=== PATIENT | female | born 1975 | race Caucasian/White ===

== ENCOUNTER 2017-05-19 07:33 | Emergency (ER) | payer MEDICARE, MEDICAID ==
[~2017-05-19] VITALS: Ht 177.8 cm; Wt 68.0 kg
[~2017-05-19 07:33] MED LIST: CEPH500C5 PO; HYDR1TAB PO; MEDR10TA PO
[2017-05-19] MEDS ORDERED: LORazepam 2 mg/ml vial IM ONE (09:25)
[2017-05-19] MEDS ORDERED: bacitracin 15gm ointment TP ONE (09:25)
[2017-05-19] MEDS ORDERED: LIDOcaine 1.5% w/epinephrine 1:200,000 5ml ampul IJ ONE (09:25)
[2017-05-19] MEDS ORDERED: ketorolac trometh inj. 60 MG/2 ML VIAL IM ONE (09:25)
[2017-05-19] MEDS ORDERED: TETanus/Pertussis (Acell)/Diphther VAC/PF (Tdap-Adult) 0.5ml syringe IM ONE (09:25)
[2017-05-19] MEDS ORDERED: HYDROcodone/acetaminophen 5mg/325mg tablet PO ONE (09:25)
[2017-05-19] MEDS ORDERED: CLIN-79 PO (10:30)
[2017-05-19 11:07] VITALS: BP 99/65
== END 2017-05-19 11:13 | disposition home or self-care (01) ==
LOC: ER 07:34
DX: L02.01 Cutaneous abscess of face (principal); F15.10 Other stimulant abuse, uncomplicated; Z86.14 Personal history of Methicillin resistant Staphylococcus aureus infection; Z98.890 Other specified postprocedural states; Z59.0 Homelessness; Z79.899 Other long term (current) drug therapy; Z88.0 Allergy status to penicillin; Z88.2 Allergy status to sulfonamides; Z88.8 Allergy status to other drugs, medicaments and biological substances
CPT/HCPCS: 10060; 90471; 90715; 96372; 99284; A6449; J1885; J2060; J3490

== ENCOUNTER 2017-08-12 14:50 | Emergency (ER) | payer MEDICARE, MEDICAID ==
[~2017-08-12] VITALS: Ht 177.8 cm; Wt 68.0 kg
[~2017-08-12 14:50] MED LIST changes: +CLIN-79 PO
[2017-08-12 14:53] VITALS: BP 131/74
[2017-08-12] MEDS ORDERED: AZIT-57 PO (15:18)
[2017-08-12] MEDS ORDERED: NEOM10SO7 OT (15:18)
== END 2017-08-12 15:30 | disposition home or self-care (01) ==
LOC: ER 14:51
DX: H66.92 Otitis media, unspecified, left ear (principal); H60.92 Unspecified otitis externa, left ear; F17.200 Nicotine dependence, unspecified, uncomplicated; F15.10 Other stimulant abuse, uncomplicated; Z88.1 Allergy status to other antibiotic agents; Z88.0 Allergy status to penicillin; Z88.2 Allergy status to sulfonamides
CPT/HCPCS: 99283

== ENCOUNTER 2021-05-05 16:15 | Emergency (ER) | payer MEDICARE, MEDICAID ==
[~2021-05-05] VITALS: Ht 170.2 cm; Wt 68.2 kg
[~2021-05-05 16:15] MED LIST changes: +CEPH-585 PO; -CEPH500C5 PO; -CLIN-79 PO; +CLIN150C8 PO; +NEOM10SO7 OT
[2021-05-05 16:24] VITALS: BP 118/76
[2021-05-05] MEDS ORDERED: mupirocin 2% ointment 22GM TP ONE (16:30)
[2021-05-05] MEDS ORDERED: LIDOcaine 1% 30ml preserv. free vial IJ ONE (16:30)
[2021-05-05] MEDS ORDERED: LIDOcaine 1% W/epiNEPHrine 1:100,000 20ml vial SQ ONE (19:30)
== END 2021-05-05 20:25 | disposition home or self-care (01) ==
LOC: ER 16:15
DX: S01.21XA Laceration without foreign body of nose, initial encounter (principal); F15.90 Other stimulant use, unspecified, uncomplicated; M79.7 Fibromyalgia; Z56.0 Unemployment, unspecified; Z59.00 Homelessness unspecified; Z86.14 Personal history of Methicillin resistant Staphylococcus aureus infection; Z85.6 Personal history of leukemia; Z88.0 Allergy status to penicillin; Z88.8 Allergy status to other drugs, medicaments and biological substances; Z79.1 Long term (current) use of non-steroidal anti-inflammatories (NSAID); Z79.899 Other long term (current) drug therapy; W54.8XXA Other contact with dog, initial encounter; Y93.89 Activity, other specified; Y92.89 Other specified places as the place of occurrence of the external cause; Y99.8 Other external cause status
CPT/HCPCS: 12011; 99282

== ENCOUNTER 2021-10-12 21:49 | Emergency (ER) | payer MEDICARE, MEDICAID ==
[~2021-10-12] VITALS: Ht 175.3 cm; Wt 68.2 kg
[2021-10-12 22:42] LABS: BASOPHILS % (AUTO) 0.5 % (0-1); EOSINOPHILS # (AUTO) 0.1 X10'3 (0-0.9); EOSINOPHILS % (AUTO) 1.2 % (0-6); HEMATOCRIT 37.5 % (35.0-45.0); LYMPHOCYTES # (AUTO) 1.2 X10'3 (1.1-4.8); LYMPHOCYTES % (AUTO) 18.3 % (21-51); MEAN CORPUSCULAR HGB CONC 34.6 g/dL (33.0-36.5); MEAN CORPUSCULAR VOLUME 95.4 FL (78-98); MEAN PLATELET VOLUME 7.3 FL (7.4-10.4); MONOCYTES # (AUTO) 0.6 X10'3 (0-0.9); MONOCYTES % (AUTO) 8.9 % (2-12); NEUTROPHILS # (AUTO) 4.7 X10'3 (1.8-7.7); NEUTROPHILS % (AUTO) 71.1 % (42-75); PLATELET COUNT 262 X10'3 (140-440); RED BLOOD COUNT 3.93 X10'6 (4.20-5.60); RED CELL DISTRIBUTION WIDTH 12.8 % (11.5-14.5); WHITE BLOOD COUNT 6.6 X10'3 (4.5-11.0)
[2021-10-12] MEDS ORDERED: clindamycin 150mg capsule PO ONE (22:50)
[2021-10-12 22:58] LABS: ALANINE AMINOTRANSFERASE 16 U/L (12-78); ALBUMIN 3.4 G/DL (3.4-5.0); ALBUMIN/GLOBULIN RATIO 0.9 (1.1-1.5); ALKALINE PHOSPHATASE 60 IU/L (46-116); ANION GAP 7 (8-16); ASPARTATE AMINO TRANSFERASE 14 U/L (10-37); BILIRUBIN,TOTAL 0.5 MG/DL (0.1-1.0); BLOOD UREA NITROGEN 14 MG/DL (7-18); BUN/CREATININE RATIO 17.9 (6.6-38.0); CHLORIDE 103 MMOL/L (99-107); CREATININE 0.78 MG/DL (0.40-0.90); GLUCOSE 116 MG/DL (70-104); POTASSIUM 3.9 MMOL/L (3.5-5.1); SODIUM 138 MMOL/L (135-145); TOTAL CARBON DIOXIDE 28.4 MMOL/L (24-32); TOTAL PROTEIN 7.2 G/DL (6.4-8.2); eGFR 80 ML/MIN
--- NOTE | 2021-10-12 22:59 | NUR ---
Ultrasound at bedside
[2021-10-12 23:08] LABS: APTT 28 SECONDS (22-32)
[2021-10-12] MEDS ORDERED: CLIN-97 PO (23:25)
[2021-10-12 23:41] VITALS: BP 111/78
== END 2021-10-12 23:47 | disposition home or self-care (01) ==
LOC: ER 21:50
DX: L03.115 Cellulitis of right lower limb (principal); F15.90 Other stimulant use, unspecified, uncomplicated; Z87.440 Personal history of urinary (tract) infections; Z86.14 Personal history of Methicillin resistant Staphylococcus aureus infection; Z98.890 Other specified postprocedural states; Z56.0 Unemployment, unspecified; Z59.00 Homelessness unspecified; Z88.0 Allergy status to penicillin; Z88.1 Allergy status to other antibiotic agents; Z88.8 Allergy status to other drugs, medicaments and biological substances; Z79.2 Long term (current) use of antibiotics; Z79.899 Other long term (current) drug therapy
CPT/HCPCS: 36415; 73610; 80053; 85025; 85610; 85730; 93971; 99285

== ENCOUNTER 2021-10-24 02:55 | Emergency (ER) | payer MEDICARE, MEDICAID ==
[~2021-10-24] VITALS: Ht 175.3 cm; Wt 70.5 kg
[~2021-10-24 02:55] MED LIST changes: +CLIN-97 PO
[2021-10-24] MEDS ORDERED: ondansetron 4mg rapidly disintigrating tab PO ONE (05:25)
[2021-10-24] MEDS ORDERED: clindamycin 150mg capsule PO ONE (05:25)
[2021-10-24 05:26] VITALS: BP 115/73
[2021-10-24] MEDS ORDERED: CLIN150C2 PO (05:27)
== END 2021-10-24 06:01 | disposition home or self-care (01) ==
LOC: ER 02:55
DX: L03.115 Cellulitis of right lower limb (principal); F15.10 Other stimulant abuse, uncomplicated; Z59.00 Homelessness unspecified; Z56.0 Unemployment, unspecified; Z86.14 Personal history of Methicillin resistant Staphylococcus aureus infection; Z88.0 Allergy status to penicillin; Z88.2 Allergy status to sulfonamides; Z88.8 Allergy status to other drugs, medicaments and biological substances; Z79.899 Other long term (current) drug therapy
CPT/HCPCS: 99283

== ENCOUNTER 2022-03-02 00:33 | Emergency (ER) | payer MEDICARE, MEDICAID ==
[~2022-03-02] VITALS: Ht 177.8 cm; Wt 65.9 kg
[2022-03-02] MEDS ORDERED: metroNIDAZOLE 500mg tablet PO ONE (01:15)
[2022-03-02 02:03] VITALS: BP 160/104
== END 2022-03-02 02:05 | disposition home or self-care (01) ==
LOC: ER 00:33
DX: S41.132A Puncture wound without foreign body of left upper arm, initial encounter (principal); S51.831A Puncture wound without foreign body of right forearm, initial encounter; S71.032A Puncture wound without foreign body, left hip, initial encounter; M79.7 Fibromyalgia; Z98.890 Other specified postprocedural states; F15.90 Other stimulant use, unspecified, uncomplicated; F17.210 Nicotine dependence, cigarettes, uncomplicated; Z88.0 Allergy status to penicillin; Z88.2 Allergy status to sulfonamides; Z88.8 Allergy status to other drugs, medicaments and biological substances; W54.0XXA Bitten by dog, initial encounter; Y93.89 Activity, other specified; Y92.89 Other specified places as the place of occurrence of the external cause; Y99.8 Other external cause status
CPT/HCPCS: 99283; A6449

== ENCOUNTER 2024-07-24 22:29 | Emergency (ER) | payer MEDICARE, MEDICAID ==
[~2024-07-24] VITALS: Ht 175.3 cm; Wt 100.0 kg
[~2024-07-24 22:29] MED LIST changes: +CLIN-214 PO; -CLIN150C8 PO
[2024-07-24 22:30] VITALS: BP 115/63; PULSE 91; RESP 18; TEMP 98.2; O2SAT 98
== END 2024-07-24 23:27 | disposition home or self-care (01) ==
LOC: ER 22:29
DX: S70.01XA Contusion of right hip, initial encounter (principal); M79.7 Fibromyalgia; F15.90 Other stimulant use, unspecified, uncomplicated; Z88.2 Allergy status to sulfonamides; Z88.1 Allergy status to other antibiotic agents; Z98.890 Other specified postprocedural states; W19.XXXA Unspecified fall, initial encounter; Y93.89 Activity, other specified; Y92.89 Other specified places as the place of occurrence of the external cause; Y99.8 Other external cause status
CPT/HCPCS: 73502; 99283